=== PATIENT | male | born 1940 | race Caucasian/White ===

== ENCOUNTER 2017-03-11 12:48 | Emergency (ER) | payer MEDICARE, OTHER ==
--- NOTE | 2017-03-11 13:28 | ED Physician Chart ---
Chief Complaint/HPI - Patient Information Date Seen:: 03/11/17 Time Seen:: 12:37 Chief Complaint:: Cardiac Arrest History of Present Illness:: pt presents via [facility] with Unresponsivess and no vitals; pt received multiple dosages of Epinephrine, O2, bagged breathing, and IV enroute to ER; Unknown down time of pt before EMS arrival; no other hx available Historian:: EMS Review:: Nurse's Note Reviewed Review of Systems - Review of Systems General/Constitutional: No fever, No chills, No weight loss, No weakness, No diaphoresis, No edema, No loss of appetite Skin: No skin lesions, No rash, No bruising Head: No headache, No light-headedness Eyes: No loss of vision, No pain, No diplopia ENT: No earache, No nasal drainage, No sore throat, No tinnitus Neck: No neck pain, No swelling, No thyromegaly, No stiffness, No mass noted Cardio Vascular: No chest pain, No palpitations, No PND, No orthopnea, No edema Pulmonary: No SOB, No cough, No sputum, No wheezing GI: No nausea, No vomiting, No diarrhea, No pain, No melena, No hematochezia, No constipation, No hematemesis G/U: No dysuria, No frequency, No hematuria Musculoskeletal: No bone or joint pain, No back pain, No muscle pain Endocrine: No polyuria, No polydipsia Psychiatric: No prior psych history, No depression, No anxiety, No suicidal ideation Hematopoietic: No bruising, No lymphadenopathy Allergic/Immuno: No urticaria, No angioedema Neurological: No syncope, No focal symptoms, No weakness, No paresthesia, No headache, No seizure, No dizziness, No confusion, No vertigo Past Medical History - Past Medical History Obtainable: No Family Medical History - Family Member Mother History Unknown: Yes Physical Exam - Physical Examination Other Gen/Cons comments:: Comatose pt in Cardio-Pulmonary Arrest; No Vitals; Pupils: Fixed and Dilated; no Heart Sounds; No breath sounds; no spontaneous breathing; Abd.: Distended; Neuro: Comatose pt; Pupils: fixed and dilated; no corneal reflexes; Skin: + Cyanosis Labs/Radiology/EKG Results - EKG Interpretations EKG Time:: 12:37 Rate & Rhythm: Asystole; Flat Line Assessment - Assessment Critical Care Time: 30 minutes - Procedures Procedures:: Oral Endotracheal Intubation performed; NG Tube Inserted; CPR performed; [facility] Protocol performed; please refer to Code Sheets and Medications Sheets Informed Consent: Procedure/risk/benefits explained by MD: No (Comatose pt in Cardiopulmonary Arrest) ED Septic Shock - . Is Septic Shock (SBP<90, OR Lactate>4 mmol\L) present?: No Reassessment (Disposition) - Reassessment Reassessment:: pt did not respond; pt pronounced at 1300; pt's PMD and family notified Reassessment Condition:: Unchanged - Patient Disposition Discharge/Transfer:: Condition at Disposition::
== END 2017-03-11 20:40 | disposition expired ==
LOC: ER 12:48
DX: I46.9 Cardiac arrest, cause unspecified (principal)
CPT/HCPCS: Z7502; Z7610